=== PATIENT | female | born 1990 | race Hispanic/Latino ===

== ENCOUNTER 2021-08-31 17:17 | Emergency (ER) | payer MEDICARE, OTHER ==
[2021-08-31 18:17] LABS: #Basophils 0.1 10x3/uL (0.0-0.2); #Eosinphils 0.1 10x3/uL (0.0-0.5); #Monocytes 0.7 10x3/uL (0.0-1.1); #Neutrophils 4.2 10x3/uL (1.5-8.4); %Eosinophils 1.5 % (0.0-6.0); %Lymphocytes 29.7 % (18.0-47.0); %Monocytes 9.7 % (0.0-10.0); Hemoglobin 12.5 g/dL (12.0-15.5); Mean Corpuscular HGB CONC 34.9 g/dL (32.0-36.0); Mean Corpuscular Hemoglobin 30.6 pg (27.0-33.0); Mean Corpuscular Volume 87.7 fl (81.6-98.3); Mean Platelet Volume 10.4 fl (7.4-10.4); Platelet Count 284 10x3/uL (150-450); RBC Distribution Width 12.1 % (11.5-14.5); Red Blood Cell (RBC) Count 4.08 10x6/uL (3.90-5.03); White Blood Cell (WBC) Count 7.2 10x3/uL (3.5-10.5)
[2021-08-31 18:31] LABS: ALT (SGPT) 10 U/L (8-55); AST (SGOT) 17 U/L (5-34); Albumin 4.4 g/dL (3.5-5.0); Alkaline Phosphatase 61 U/L (40-110); Anion Gap 10 mmol/L (10-20); BUN (Urea Nitrogen) 13 mg/dL (7.0-18.7); Bilirubin, Total 0.4 mg/dL (0.2-1.2); Calc. Creatinine Clearance 0 mL/min (70-130); Calcium 9.1 mg/dL (7.8-10.44); Carbon Dioxide 24 mmol/L (22-29); Chloride 105 mmol/L (98-107); Globulin 2.9 g/dL (2.4-3.5); Glucose 94 mg/dL (70-105); Potassium 3.7 mmol/L (3.5-5.1); Protein, Total 7.3 g/dL (6.0-8.3); Sodium 135 mmol/L (136-145)
== END 2021-08-31 20:24 | disposition home or self-care (01) ==
LOC: CSHERS 17:17
DX: O99.891 Other specified diseases and conditions complicating pregnancy (principal); N83.201 Unspecified ovarian cyst, right side
CPT/HCPCS: 36415; 76856; 80053; 84702; 85025; 86900; 86901

== ENCOUNTER 2021-09-01 15:15 | Day surgery (SDC) | payer OTHER ==
[2021-09-01] MEDS ORDERED: Bupivacaine PF 0.5% 30 ML VIAL ONE (15:30)
[2021-09-01] MEDS ORDERED: EPINEPHrine 1 MG/ML AMP ONE (15:30)
[2021-09-01 15:58] LABS: Hemoglobin 12.6 g/dL (12.0-15.5); Mean Corpuscular HGB CONC 35.2 g/dL (32.0-36.0); Mean Corpuscular Volume 88.2 fl (81.6-98.3); Mean Platelet Volume 10.5 fl (7.4-10.4); Platelet Count 292 10x3/uL (150-450); RBC Distribution Width 12.1 % (11.5-14.5); Red Blood Cell (RBC) Count 4.06 10x6/uL (3.90-5.03); White Blood Cell (WBC) Count 6.1 10x3/uL (3.5-10.5)
[2021-09-01] MEDS ORDERED: PROPOFOL 20 ML ONE (16:18)
[2021-09-01] MEDS ORDERED: Fentanyl 100 MCG/2 ML VIAL ONE ×3 (16:19→18:01)
[2021-09-01] MEDS ORDERED: ceFAZolin 2 GM/Dextrose 50 ML IVPB ONE (16:24)
[2021-09-01] MEDS ORDERED: Rocuronium Bromide 10 MG/ML (10ML VIAL) ONE (16:51)
[2021-09-01] MEDS ORDERED: Ondansetron PF 4 MG/2 ML Vial ONE (16:51)
[2021-09-01] MEDS ORDERED: Dexamethasone 4 mg/ml Vial ONE (16:51)
[2021-09-01] MEDS ORDERED: Glycopyrrolate 0.2 MG/ML 5 ML SYRINGE ONE (16:51)
[2021-09-01] MEDS ORDERED: Ketorolac Tromethamine 30 MG/ML VIAL ONE (17:44)
[2021-09-01] MEDS ORDERED: Meperidine HCl/PF 25 MG/ML VIAL ONE (18:02)
[2021-09-01 18:22] LABS: SARS-CoV-2 NAA Rapid Test Not Detected (NotDetected)
== END 2021-09-01 19:35 | disposition home or self-care (01) ==
LOC: CSHSDC 15:15
PROVIDERS: ATTEND Obstetrics & Gynecology
DX: N83.11 Corpus luteum cyst of right ovary (principal)
CPT/HCPCS: 85027; 86850; 86900; 86901; 88305; J0171; J0690; J1100; J1885; J2175; J2405; J2704; J3010; S0020; U0002

== ENCOUNTER 2022-06-02 10:07 | Emergency (ER) | payer OTHER ==
[2022-06-02 11:04] LABS: #Eosinphils 0.1 10x3/uL (0.0-0.5); #Monocytes 0.5 10x3/uL (0.0-1.1); #Neutrophils 4.4 10x3/uL (1.5-8.4); %Basophils 0.6 % (0.0-2.0); %Eosinophils 0.8 % (0.0-6.0); %Lymphocytes 22.8 % (18.0-47.0); %Monocytes 7.2 % (0.0-10.0); %Neutrophils 68.4 % (40.0-75.0); Hemoglobin 11.7 g/dL (12.0-15.5); Mean Corpuscular Hemoglobin 31.1 pg (27.0-33.0); Mean Corpuscular Volume 86.4 fl (81.6-98.3); Mean Platelet Volume 10.5 fl (7.4-10.4); Platelet Count 249 10x3/uL (150-450); RBC Distribution Width 11.8 % (11.5-14.5); Red Blood Cell (RBC) Count 3.76 10x6/uL (3.90-5.03); White Blood Cell (WBC) Count 6.4 10x3/uL (3.5-10.5)
[2022-06-02] MEDS ORDERED: Promethazine HCl 25 MG/ML VIAL ONE (11:06)
[2022-06-02 11:21] LABS: ALT (SGPT) 11 U/L (8-55); AST (SGOT) 17 U/L (5-34); Albumin 4.1 g/dL (3.5-5.0); Alkaline Phosphatase 41 U/L (40-110); Anion Gap 13 mmol/L (10-20); BUN (Urea Nitrogen) 5 mg/dL (7.0-18.7); Bilirubin, Total 0.6 mg/dL (0.2-1.2); Calc. Creatinine Clearance 0 mL/min (70-130); Calcium 9.6 mg/dL (7.8-10.44); Carbon Dioxide 21 mmol/L (22-29); Chloride 108 mmol/L (98-107); Estimated GFR 119; Glucose 89 mg/dL (70-105); Lipase 25 U/L (8-78); Potassium 3.6 mmol/L (3.5-5.1); Protein, Total 7.1 g/dL (6.0-8.3); Sodium 138 mmol/L (136-145)
[2022-06-02 13:48] LABS: Bilirubin Neg (Negative); Blood, Urine Negative (Negative); Glucose, Urine (Dipstick) Normal (Negative); Ketone, Urine 50 mg/dL (Negative); Leukocyte 500 (Negative); Nitrite Negative (Negative); Protein, Urine (Dipstick) Negative (Neg-Trace); Urobilinogen Normal mg/dL (Less than 2)
[2022-06-02 14:19] LABS: Clarity Hazy (Clear)
[2022-06-02 14:21] LABS: Bacteria/HPF 3+ HPF (None Seen); Mucous/LPF 1+ LPF (<2+); RBC/HPF 0-3 HPF (0-3)
== END 2022-06-02 14:57 | disposition home or self-care (01) ==
LOC: CSHERS 10:07
DX: O21.9 Vomiting of pregnancy, unspecified (principal); O23.42 Unspecified infection of urinary tract in pregnancy, second trimester; O99.612 Diseases of the digestive system complicating pregnancy, second trimester; Z3A.13 13 weeks gestation of pregnancy
CPT/HCPCS: 76856; 80053; 81003; 81015; 83690; 84702; 85025; 87086; 96365; J2550